=== PATIENT | male | born 1935 | race Caucasian/White ===

== ENCOUNTER → 2020-11-10 14:40 | Outpatient (BNVA) | payer MEDICARE, SELFPAY | PROVIDERS: PCP Nurse Practitioner Family; Visit Provider Nurse Practitioner Family | DX: I10 Essential (primary) hypertension (principal); M1A.00X0 Idiopathic chronic gout, unspecified site, without tophus (tophi); G56.03 Carpal tunnel syndrome, bilateral upper limbs; E55.9 Vitamin D deficiency, unspecified; Z79.899 Other long term (current) drug therapy; Z13.6 Encounter for screening for cardiovascular disorders; M19.90 Unspecified osteoarthritis, unspecified site | CPT/HCPCS: 80053; 80061; 81003; 82306; 83036; 84443; 84550; 85025; 87086 ==

== ENCOUNTER → 2020-11-23 14:24 | Outpatient (BNVA) | payer MEDICARE, SELFPAY | PROVIDERS: PCP Nurse Practitioner Family; Referring Provider Nurse Practitioner Family; Visit Provider Specialist | DX: G56.03 Carpal tunnel syndrome, bilateral upper limbs (principal); Z46.89 Encounter for fitting and adjustment of other specified devices | CPT/HCPCS: 73110; 97760; L3908 ==

== ENCOUNTER 2020-11-23 16:51 | Outpatient (CLI) | payer MEDICARE, SELFPAY | END 2020-11-23 16:52 | disposition home or self-care (01) | LOC: SPT 16:52 | PROVIDERS: PCP Nurse Practitioner Family; Visit Provider Specialist | DX: Z46.89 Encounter for fitting and adjustment of other specified devices (principal); G56.03 Carpal tunnel syndrome, bilateral upper limbs | CPT/HCPCS: 97760; L3908 ==

== ENCOUNTER → 2020-12-19 12:31 | Outpatient (BNVA) | payer MEDICARE, SELFPAY | PROVIDERS: PCP Nurse Practitioner Family; Visit Provider Specialist | DX: G56.02 Carpal tunnel syndrome, left upper limb (principal) | CPT/HCPCS: 87635 ==

== ENCOUNTER 2020-12-22 10:37 | Day surgery (SDC) | payer MEDICARE, SELFPAY ==
[2020-12-15 13:47] VITALS: BMI 27.2
[2020-12-21 15:03] VITALS: BMI 26.1
[2020-12-22] VITALS (7 sets, daily range): BP systolic 98–163; BP diastolic 62–84; PULSE 61–72; RESP 12–18; TEMP 36.2–36.5; O2SAT 96–99
[2020-12-22] MEDS: CELEcoxib 200 mg Capsule 400 MG PO (11:21)
[2020-12-22] MEDS: sodium chloride 0.9% 1,000 ML 30 ML IV (11:21)
--- NOTE | 2020-12-22 11:47 | P.ANESASSM_ITS ---
Pre-Anesthetic Assessment Pre-Anesthetic Assessment: Height/Weight: Height 1.78 m Weight 82.554 kg Temp Pulse Resp BP Pulse Ox 97.4 F L 61 18 163/84 96 12/22/20 10:49 12/22/20 10:49 12/22/20 10:49 12/22/20 10:49 12/22/20 10:49 Preop Diagnosis: Left carpal tunnel syndrome Proposed Procedure: Operation Date: 12/22/20 12:30 Proposed Procedures p Carpal Tunnel Release 33800 G56.00(Left) - Gardenia Gomez MD Familial anesthetic complications: None Was Beta Kirsty taken within 24 hours: Yes Last intake: Intake Last Liquid Date 12/21/20 Last Liquid Time 18:00 Last Solid Date 12/21/20 Last Solid Time 18:00 Social: Social History: No alcohol and No tobacco Exam: Pre-Anes Outpt Exam: alert, oriented x 3, clear to auscultation bilaterally and regular rate & rhythm Airway: Cervical ROM: WNL MP: 2 Dentition: Other (no teeth) CV/HEM: CV/HEM: HTN GI: GI: GERD Anesthetic Plan: ASA status: 2 Anesthesia: General Risk of > 500 ml blood loss (7ml/kg in children): No Meds/Allergies Current Medications: Current Medications Generic Name Dose Route Start Last Admin Trade Name Freq PRN Reason Stop Dose Admin Sodium Chloride 1,000 mls @ 30 ml s/hr 12/22/20 10:45 12/22/20 11:21 Sodium Chloride 0.9% IV 12/23/20 10:44 30 mls/hr .Q24H CHAIM Administration PFSH Anesthesia PFSH: Medical History Arthralgia Arthritis Carpal tunnel syndrome on both sides Patient has history of pain from carpal tunnel. He has work up and was scheduled for [place] [facility] [place] [facility], but cancelled due to concern of hospital stay. Hypertension Hypertension screen Idiopathic chronic gout Patient has long history of gout and family history of gout. He has taken Colchicine for many years and has continued to control symptoms. Renal insufficiency Vitamin D deficiency Vitamin D deficiency Surgical History Status post re-excision of malignant skin lesion Family History Mother Heart disease Social History Smoking and tobacco status: never smoked Alcohol intake: never Marital status: Data Anesthesia CBC & Chem 7: 12/22/20 11:16 12/22/20 11:16 Cardiac Studies: No Data to Display
[2020-12-22 11:50] LABS: Basophils # 0.1 10^3/uL (0.0-0.1); Basophils % 0.7 %; Eosinophils # 0.1 10^3/uL (0.0-0.8); Eosinophils % 1.8 %; Hematocrit 47.5 % (42.0-52.0); Lymphocytes # 2.2 10^3/uL (0.8-4.8); Lymphocytes % 29.6 %; Mean Corpuscular HGB Conc 33.7 g/dL (30.0-36.0); Mean Corpuscular Hemoglobin 33.8 pg (28.0-34.0); Mean Corpuscular Volume 100.4 fL (80-94); Mean Platelet Volume 9.4 fL (7.4-10.4); Monocytes # 0.6 10^3/uL (0.2-0.9); Neutrophils # 4.53 10^3/uL (1.8-7.7); Neutrophils % 59.8 %; Nucleated Red Blood Cells % 0 %; Platelet Count 328 10^3/cmm (130-400); Red Blood Count 4.73 10^6/uL (4.1-5.3); Red Cell Distribution Width 12.5 % (12.1-15.1); White Blood Count 7.6 10^3/uL (4.0-10.0)
[2020-12-22] MEDS: metoprolol succinate ER (24 HR) 50 mg Tablet PO (11:59)
[2020-12-22 12:16] LABS: Alanine Aminotransferase 7 U/L (0-41); Albumin Level 3.8 g/dL (3.5-5.2); Alkaline Phosphatase 89 IU/L (40-130); Aspartate Amino Transferase 17 U/L (0-40); Blood Urea Nitrogen 14 mg/dL (8-23); Calcium 8.6 mg/dL (8.5-10.5); Carbon Dioxide 25 mmol/L (22-29); Chloride 103 mmol/L (98-107); Globulin 3.5 g/dL (1.3-4.6); Glucose 80 mg/dL (65-115); Osmolality Calculated 287 mOsm/kg (285-295); Sodium 139 mmol/L (136-145); Total Bilirubin 0.8 mg/dL (0.15-1.2); Total Protein 7.3 g/dL (6.6-8.7)
[2020-12-22 12:24] LABS: Anion Gap 15.3 (5-19); Potassium 4.3 mmol/L (3.5-5.1)
--- NOTE | 2020-12-22 12:26 | W.PM.OPSUD ---
Surgery/Procedure H&P Update DATE OF PROCEDURE: December 22, 2020 DATE H&P PERFORMED: 11/23/20 H&P UPDATE INFORMATION: I have reviewed H&P completed within last 30 days, I have examined patient prior to procedure, No changes to prior documentation and H&P is in [facility] [place] on date indicated PREOP DIAGNOSIS: Left carpal tunnel syndrome PLANNED PROCEDURE: Operation Date: 12/22/20 12:30 Proposed Procedures p Carpal Tunnel Release 40610 G56.00(Left) - Gardenia Gomez MD Related Problem List Diagnoses (1) Carpal tunnel syndrome of left wrist:
[2020-12-22] MEDS: vancomycin 1,000 MG in sodium chloride 0.9% 250 ML 250 MG IV (12:35)
--- NOTE | 2020-12-22 13:44 | PM.OP ---
Operative Report Date of procedure: December 22, 2020 Pre-op Diagnosis: Left carpal tunnel syndrome Post-op diagnosis: same Post-op Findings: Severe compression across the median nerve Procedure Done: Left Carpal Tunnel Release Specimens removed/disposition: None Pathology: none sent Surgeon: Gardenia Gomez Archeology Professor: None Anesthesia: General (LMA) Estimated blood loss (mL): 2 Tourniquet time (min): 26 Tourniquet time: At 250 mmHg IV fluids (mL): 400 Urine output (mL): 0 Complications: None Findings: Severe compression with hourglass deformity median nerve Condition: stable Disposition: PACU (Then to same-day surgery for discharge home) Brief History: This 85-year-old gentleman presented with complaints of numbness in the left hand which was severe. Studies were consistent with carpal tunnel syndrome, and the patient wished to proceed with carpal tunnel release. Risks and complications were discussed with him. Consents were signed. Questions were answered. Procedure: The patient was brought to the operating theater, and general anesthesia was administered per LMA. The tourniquet was elevated to 250 mmHg for a total tourniquet time of 26 minutes. The patient was also given vancomycin 1 g preoperatively. The arm was then prepped and draped with DuraPrep in usual fashion with the arm draped free. A surgical pause was performed. At the time, the surgical pause, we confirmed the site and side of surgery. We also confirmed the patient's identity, appropriate and timely administration of preoperative antibiotics and preoperative surgical markings. An incision was then made along the thenar crease. The incision crossed the wrist joint in a curvilinear fashion. Dissection continued through skin and soft tissues using a scalpel. The palmaris longus was identified along with the transverse carpal ligament. Each of these was released carefully to avoid injury to the median nerve. We were able to dissect gently into the carpal canal which was noted to be quite tight with significant compression across the median nerve. The nerve was visualized and was an hourglass shape. The canal was subsequently palpated to assure there was no bony encroachment upon the canal. There was a quite thickened fibrous tissue within the canal, and this was opened longitudinally as well. The canal was then palpated distally and proximally to assure that my small finger was passed easily without impingement. Finding this to be so, attention was directed to closure. The wound was irrigated with ropivacaine plain. It was then closed with 3-0 nylon in an interrupted mattress fashion. Sterile dressing was then placed consisting of Xeroform gauze, fluffed fluffs, sterile soft roll, a volar splint, and an Rocky wrap. The tourniquet was released after 26 minutes. There were no complications. There were no specimens. The procedure was well tolerated. Plan is the patient will be discharged home. Associated Problem List Diagnoses (1) Carpal tunnel syndrome of right wrist:
--- NOTE | 2020-12-22 13:52 | SUR.PHASEI ---
pt awake alert on ra trial, pt taking occ ice chips vss pt denies pain and nausea
--- NOTE | 2020-12-22 14:50 | ANE.PACU2 ---
Inpatient post-anesthesia follow up: Airway intact: Yes Vital signs: Temperature 97.7 F Pulse Rate 69 Respiratory Rate 18 Blood Pressure 127/82 Pulse Oximetry 99 Oxygen Delivery Me thod Room Air Oxygen Flow Rate 6 Fraction of Inspir ed Oxygen Hydration adequate: Yes Nausea and vomiting: No Pain level: 2 Mental status: Baseline
== END 2020-12-22 14:47 | disposition home or self-care (01) ==
PROVIDERS: PCP Nurse Practitioner Family; Visit Provider Specialist
PROC: (CPT 64721; principal; 2020-12-22 12:30)
DX: G56.02 Carpal tunnel syndrome, left upper limb (principal); I10 Essential (primary) hypertension; K21.9 Gastro-esophageal reflux disease without esophagitis; M19.90 Unspecified osteoarthritis, unspecified site; Z79.82 Long term (current) use of aspirin
CPT/HCPCS: 64721; 36415; 80053; 85025; 96365; J0131; J1100; J2405; J2704; J3010; J3370; J3490; J7030; J7050

== ENCOUNTER → 2021-02-08 13:19 | Outpatient (BNVA) | payer MEDICARE, SELFPAY | PROVIDERS: PCP Nurse Practitioner Family; Visit Provider Specialist | DX: G56.02 Carpal tunnel syndrome, left upper limb (principal) | CPT/HCPCS: 73110 ==

== ENCOUNTER 2022-05-22 15:45 | Inpatient (IN) | payer MEDICARE, SELFPAY ==
[2022-05-22] VITALS (52 sets, daily range): BP systolic 104–148; BP diastolic 63–98; PULSE 54–82; RESP 11–26; TEMP 36.4–36.8; O2SAT 92–100; BMI 25.8
--- NOTE | 2022-05-22 15:48 | XRR_ITS ---
PROCEDURE INFORMATION: Exam: XR Chest Exam date and time: 05/22/2022 4:12 PM Age: 86 years old Clinical indication: Radiating; Patient HX: Sudden onset of acute upper abdominal and lower chest pain for about an hour. Patient tells me that he was at home after getting multiple procedures done at the dermatology clinic yesterday and today. Patient tells me that this pain is sudden onset and lasted for about an hour. He says this pain is the worst pain i have experienced. patient denies the pain is migratory but does report that it radiates towards the back. TECHNIQUE: Imaging protocol: Radiologic exam of the chest. Views: 1 view. COMPARISON: No relevant prior studies available. FINDINGS: Lungs: Unremarkable. No consolidation. Pleural spaces: Unremarkable. No pleural effusion. No pneumothorax. Heart/Mediastinum: Unremarkable. No cardiomegaly. Bones/joints: Unremarkable. XR/XR chest 1V portable [id number] IMPRESSION: No acute findings.
--- NOTE | 2022-05-22 15:48 | ECG_ITS ---
[facility] Test Date: 2022-05-22 Pat Name: Henrique Colon Department: Room: Gender: Male Cad Intern: : 1935 Requested By: Irma Meyer Order Number: [id number] Binu MD: Joi Moe M.D. Measurements Intervals [place] Rate: 61 P: 44 [place]: 191 QRS: -34 QRSD: 112 T: 75 QT: 407 QTc: 412 Interpretive Statements SINUS RHYTHM LEFT AXIS DEVIATION [QRS AXIS < -30] INCOMPLETE RIGHT BUNDLE BRANCH BLOCK [90+ ms QRS DURATION, TERMINAL R IN V1/V2, 40+ ms S IN I/aVL/V4/V5/V6] NONSPECIFIC T-WAVE ABNORMALITY No previous ECG available for comparison Electronically Signed On 05-22-2022 21:17:15 CDT by Joi Moe M.D. [id number]
--- NOTE | 2022-05-22 15:56 | W.ED.GENADLT ---
HPI - General Adult General: Chief complaint: Chest Pain Stated complaint: CHEST PAIN Time Seen by Provider: 05/22/22 15:47 History of Present Illness: Patient is an 86-year-old male with history of type blood pressure presenting to the emergency room with sudden onset of acute upper abdominal and lower chest pain for about an hour. Patient tells me that he was at home after getting multiple procedures done at the dermatology clinic yesterday and today. Patient tells me that this pain is sudden onset and lasted for about an hour. He says this pain is the worst pain I have experienced. Patient denies the pain is migratory but does report that it radiates towards the back. Patient denies any fever/chills, cough, runny nose sore throat, any active chest pain, exertional chest pain or pleuritic chest pain. Patient denies any Onset:2 hrs ago Duration:1 hr Location:home Severity:moderate Associated symptoms: Reports chest pain (+lower chest pain); Deny dyspnea, nausea, rash, palpitations or vomiting Review of Systems Const: Denies: fever(s) or chills Eyes: Denies: change in vision ENMT: Denies: mouth pain Card: Reports: chest pain (+lower chest pain); Denies: palpitations Resp: Denies: dyspnea or non-productive cough GI: Reports: abdominal pain (+upper abd pain); Denies: nausea, vomiting or diarrhea : Denies: dysuria Musc: Denies: extremity pain Skin/Breast: Denies: rash or new lesions Neuro: Denies: weakness in extremities Psych: Reports: other (Normal mood) [place]/Lymph: Denies: easy bruising PFSH ED PFSH: Medical History Arthralgia Arthritis Carpal tunnel syndrome on both sides Patient has history of pain from carpal tunnel. He has work up and was scheduled for surgery with [facility] [place] [facility], but cancelled due to concern of hospital stay. Hypertension Hypertension screen Idiopathic chronic gout Patient has long history of gout and family history of gout. He has taken Colchicine for many years and has continued to control symptoms. Renal insufficiency Vitamin D deficiency Vitamin D deficiency Surgical History Status post re-excision of malignant skin lesion Family History Mother Heart disease Social History Smoking and tobacco status: never smoked Alcohol intake: never Marital status: Physical Exam Const: COMMON NORMALS: alert HENMT: COMMON NORMALS: atraumatic HEAD & SCALP: atraumatic MOUTH: moist mucous membranes not abnormal Eye: COMMON NORMALS: EOMs intact bilaterally and conjunctivae normal CONJUNCTIVA: Yes conjunctivae normal Neck/C-Spine: COMMON NORMALS: full ROM and supple Resp: COMMON NORMALS: normal respiratory effort and clear to auscultation bilaterally AUSCULTATION: clear to auscultation bilaterally Cardio: COMMON NORMALS: regular rate RATE: regular rate GI: COMMON NORMALS: Soft to palpation and non-tender PALPATION: Yes Soft to palpation OTHER: + mild mid-epigastric focal TTP. NO guarding rebound, guarding, rigidity. No CVA tenderness to percussion. Neg Kohler/Neg McBurney's point tenderness, no suprabupic tenderness to palpation. Extremity: COMMON NORMALS: full ROM Neuro: SENSORIUM/ORIENTATION: Yes alert MOTOR EXAM: No Abnormal motor strength present and Other motor observations present (no focal motor deficits) Psych: COMMON NORMALS: speech normal SPEECH: Yes normal speech MOOD & AFFECT: Yes euthymic mood Course Vital Signs: Vital signs: Vital Signs Temperature 98.2 F 05/22/22 15:52 Pulse Rate 82 05/22/22 15:52 Respiratory Rate 16 05/22/22 15:52 Blood Pressure 145/98 05/22/22 15:52 Pulse Oximetry 99 05/22/22 15:52 Oxygen Delivery Me thod 05/22/22 15:52 [facility] - General Adult Medical Decision Making 86-year-old male with history hypertension presenting to emergency room with 1 episode of upper abdominal and lower chest pain lasting for an hour. On exam she only has mild tenderness palpation the mid epigastric area. No palpable pulsatile mass. Patient is hemodynamically stable. No active complaints of chest pain in the ER. EKG is nonischemic. First troponin noted to be at 157 with creatinine 1.5 which is similar to patient's baseline. Patient has not complained of active chest pain. Patient received aspirin by EMS. We will trend and admit patient for further elevation. Dr. Gomez would like to have a second troponin prior to starting patient on Lovenox. Lab Data : 05/22/22 16:03 05/22/22 16:03 Radiology Impressions Chest X-Ray 05/22/22 15:48 IMPRESSION: No acute findings. Laboratory Results WBC 10.8 10^3/uL (4.0-10.0) H 05/22/22 16:03 RBC 4.31 10^6/uL (4.1-5.3) 05/22/22 16:03 Hgb 13.8 g/dL (11.7-16.6) 05/22/22 16:03 Hct 42.8 % (42.0-52.0) 05/22/22 16:03 MCV 99.3 fl (80-94) H 05/22/22 16:03 MCH 32.0 pg (28.0-34.0) 05/22/22 16:03 MCHC 32.2 g/dL (30.0-36.0) 05/22/22 16:03 RDW 12.6 % (12.1-15.1) 05/22/22 16:03 Plt Count 248 10^3/cmm (130-400) 05/22/22 16:03 MPV 9.3 fL (7.4-10.4) 05/22/22 16:03 Neut % (Auto) 80.6 % 05/22/22 16:03 Lymph % (Auto) 12.1 % 05/22/22 16:03 Parke % (Auto) 5.9 % 05/22/22 16:03 Eos % (Auto) 0.6 % 05/22/22 16:03 Baso % (Auto) 0.4 % 05/22/22 16:03 Neut # (Auto) 8.69 10^3/uL (1.8-7.7) H 05/22/22 16:03 Lymph # (Auto) 1.3 10^3/uL (0.8-4.8) 05/22/22 16:03 Parke # (Auto) 0.6 10^3/uL (0.2-0.9) 05/22/22 16:03 Eos # (Auto) 0.1 10^3/uL (0.0-0.8) 05/22/22 16:03 Baso # (Auto) 0.0 10^3/uL (0.0-0.1) 05/22/22 16:03 Nucleated RBC % (auto) 0 % 05/22/22 16:03 Nucleated RBCs # 0.0 /100WBC 05/22/22 16:03 Sodium 140 mmol/L (136-145) 05/22/22 16:03 Potassium 3.8 mmol/L (3.5-5.1) 05/22/22 16:03 Chloride 103 mmol/L (98-107) 05/22/22 16:03 Carbon Dioxide 25 mmol/L (22-29) 05/22/22 16:03 Anion Gap 15.8 (5-19) 05/22/22 16:03 BUN 20 mg/dL (8-23) 05/22/22 16:03 Creatinine 1.5 mg/dL (0.7-1.2) H 05/22/22 16:03 GFR Calculation Not Reportable 05/22/22 16:03 Glucose 142 mg/dL (65-115) H 05/22/22 16:03 Calculated Osmolality 295 mOsm/kg (285-295) 05/22/22 16:03 Lactate 2.2 mmol/L (0.5-2.2) 05/22/22 16:03 Calcium 9.0 mg/dL (8.5-10.5) 05/22/22 16:03 Total Bilirubin 0.4 mg/dL (0.15-1.2) 05/22/22 16:03 AST 13 U/L (0-40) 05/22/22 16:03 ALT 9 U/L (0-41) 05/22/22 16:03 Alkaline Phosphatase 93 IU/L (40-130) 05/22/22 16:03 Troponin T Baseline 153 ng/L (0-15) H* 05/22/22 16:03 Total Protein 6.2 g/dL (6.6-8.7) L 05/22/22 16:03 Albumin 3.3 g/dL (3.5-5.2) L 05/22/22 16:03 Globulin 2.9 g/dL (1.3-4.6) 05/22/22 16:03 Lipase 36 U/L (13-60) 05/22/22 16:03 Urine Color Taylor (Yellow) 05/22/22 16:37 Urine Appearance Clear (CLEAR) 05/22/22 16:37 Urine pH 5 (5-7) 05/22/22 16:37 Ur Specific [place] 1.025 (1.005-1.030) 05/22/22 16:37 Urine Protein Neg (Negative) 05/22/22 16:37 Urine Glucose (UA) Norm (Normal) 05/22/22 16:37 Urine Ketones 1+ (Negative) H 05/22/22 16:37 Urine Blood Neg (Negative) 05/22/22 16:37 Urine Nitrate Negative (Negative) 05/22/22 16:37 Urine Bilirubin 1+ (Negative) H 05/22/22 16:37 Urine Urobilinogen 4 mg/dL (Negative) H 05/22/22 16:37 Ur Leukocyte Esterase Negative (Negative) 05/22/22 16:37 Imaging Data Other Imaging: Radiologist's impression: [place] [address] XRay Report Signed Patient: Henrique Colon Unit #: [id number] : 1935 Age/Sex: 86 / M ADM Date: 05/22/22 Loc: ER Room/Bed: Attending Dr: Ordering Provider/Ordering MD: Irma Meyer MD Date of Service: 05/22/22 Procedure(s): XR chest 1V portable [id number] Accession Number(s): [id number] Report Number: [id number] PROCEDURE INFORMATION: Exam: XR Chest Exam date and time: 05/22/2022 4:12 PM Age: 86 years old Clinical indication: Radiating; Patient HX: Sudden onset of acute upper abdominal and lower chest pain for about an hour. Patient tells me that he was at home after getting multiple procedures done at the dermatology clinic yesterday and today. Patient tells me that this pain is sudden onset and lasted for about an hour. He says this pain is the worst pain i have experienced. patient denies the pain is migratory but does report that it radiates towards the back. TECHNIQUE: Imaging protocol: Radiologic exam of the chest. Views: 1 view. COMPARISON: No relevant prior studies available. FINDINGS: Lungs: Unremarkable. No consolidation. Pleural spaces: Unremarkable. No pleural effusion. No pneumothorax. Heart/Mediastinum: Unremarkable. No cardiomegaly. Bones/joints: Unremarkable. XR/XR chest 1V portable [id number] IMPRESSION: No acute findings. ? Dictated By: Reyes Mosley DO Signed By: Reyes Mosley DO Signed Date/Time: 05/22/22 1650 DD/ 1612 Discharge Plan Discharge Patient Disposition: Admitted As Inpatient Clinical Impression: Abdominal pain, Chest pain, Non-ST elevation CO (NSTEMI), CKD (chronic kidney disease) Condition: Stable Coding Level of Care Code ED Trim Attacher for Chg Fwd Exam Comprehensive
[2022-05-22 16:13] LABS: Basophils % 0.4 %; Eosinophils # 0.1 10^3/uL (0.0-0.8); Eosinophils % 0.6 %; Hematocrit 42.8 % (42.0-52.0); Hemoglobin 13.8 g/dL (11.7-16.6); Lymphocytes # 1.3 10^3/uL (0.8-4.8); Lymphocytes % 12.1 %; Mean Corpuscular HGB Conc 32.2 g/dL (30.0-36.0); Mean Corpuscular Volume 99.3 fl (80-94); Mean Platelet Volume 9.3 fL (7.4-10.4); Monocytes # 0.6 10^3/uL (0.2-0.9); Monocytes % 5.9 %; Neutrophils # 8.69 10^3/uL (1.8-7.7); Neutrophils % 80.6 %; Nucleated Red Blood Cells % 0 %; Platelet Count 248 10^3/cmm (130-400); Red Blood Count 4.31 10^6/uL (4.1-5.3); Red Cell Distribution Width 12.6 % (12.1-15.1); White Blood Count 10.8 10^3/uL (4.0-10.0)
[2022-05-22 16:43] LABS: Troponin(5th) Baseline 153 ng/L (0-15)
[2022-05-22 16:45] LABS: Alanine Aminotransferase 9 U/L (0-41); Albumin Level 3.3 g/dL (3.5-5.2); Alkaline Phosphatase 93 IU/L (40-130); Anion Gap 15.8 (5-19); Aspartate Amino Transferase 13 U/L (0-40); Blood Urea Nitrogen 20 mg/dL (8-23); Carbon Dioxide 25 mmol/L (22-29); Chloride 103 mmol/L (98-107); Globulin 2.9 g/dL (1.3-4.6); Glucose 142 mg/dL (65-115); Lipase 36 U/L (13-60); Osmolality Calculated 295 mOsm/kg (285-295); Potassium 3.8 mmol/L (3.5-5.1); Sodium 140 mmol/L (136-145); Total Bilirubin 0.4 mg/dL (0.15-1.2); Total Protein 6.2 g/dL (6.6-8.7)
--- NOTE | 2022-05-22 16:50 | CTR_ITS ---
PROCEDURE INFORMATION: Exam: CTA Chest With Contrast CTA Abdomen and Pelvis With Contrast Exam date and time: 05/22/2022 6:07 PM Age: 86 years old Clinical indication: Abdominal pain; Acute; Additional info: Sudden onset of sharp chest pain, hypertension TECHNIQUE: Imaging protocol: Computed tomographic angiography of the chest with contrast. Computed tomographic angiography of the abdomen and pelvis with contrast. 3D rendering (Not supervised by radiologist): MIP and/or 3D reconstructed images were created by the technologist. Radiation optimization: All CT scans at this facility use at least one of these dose optimization techniques: automated exposure control; mA and/or kV adjustment per patient size (includes targeted exams where dose is matched to clinical indication); or iterative reconstruction. Contrast material: OMNIPAQUE 350; Contrast volume: 95 ml; Contrast route: INTRAVENOUS (IV); COMPARISON: CR XR chest 1V portable [id number] 05/22/2022 4:12 PM RADIATION DOSE METRICS: Total DLP (mGy-cm): 709.87 FINDINGS: VASCULATURE: Pulmonary arteries: Normal. No pulmonary emboli. Aorta: No aortic aneurysm. No aortic dissection. Celiac trunk and mesenteric arteries: No occlusion or significant stenosis. Renal arteries: No occlusion or significant stenosis. Right iliac arteries: No occlusion or significant stenosis. Left iliac arteries: No occlusion or significant stenosis. CHEST: Lungs: No consolidation. No masses. Pleural spaces: No pneumothorax. No pleural effusion. Heart: No cardiomegaly. No pericardial effusion. ABDOMEN AND PELVIS: Liver: 1.2 cm cyst noted in the posterior right hepatic lobe. Gallbladder and bile ducts: Unremarkable. No calcified stones. No ductal dilation. Pancreas: Unremarkable. No mass. No ductal dilation. Spleen: Unremarkable. No splenomegaly. Adrenal glands: Unremarkable. No mass. Kidneys and ureters: Scattered cysts noted within both kidneys the largest measuring 6.6 cm in the upper pole of the right kidney. 5 mm linear nonobstructing stone noted in the left kidney. No solid mass. No hydronephrosis. Stomach and bowel: Colonic diverticulosis without findings of acute diverticulitis. No obstruction. No mucosal thickening. Appendix: No evidence of appendicitis. Intraperitoneal space: No free air. No significant fluid collection. Urinary bladder: Unremarkable. No mass. Reproductive: Unremarkable as visualized. Lymph nodes: No enlarged lymph nodes. Bones/joints: No acute fracture. Soft tissues: Unremarkable. CT/CT angio chest abdomen pelvis IMPRESSION: Negative for aortic dissection. No acute findings. COMMENTS: Consistent with the [employer]'s Incidental Findings Committee white paper (J Am Kenna Radiol 2018): Any incidental renal lesion less than 1 cm or classified as too small to characterize, or any incidental cystic renal lesion characterized as simple-appearing, is likely benign. No follow-up imaging is recommended for these lesions per consensus recommendations based on imaging criteria.
[2022-05-22 16:57] LABS: Lactate (Lactic Acid level) 2.2 mmol/L (0.5-2.2)
[2022-05-22 17:42] LABS: Add Urine Microscopic? NO; Charge for UA Resulting for Rev
--- NOTE | 2022-05-22 17:48 | ECG_ITS ---
[facility] Test Date: 2022-05-22 Pat Name: Henrique Colon Department: Room: Gender: Male Rn Cardiology: : 1935 Requested By: Irma Meyer Order Number: [id number] Binu MD: Soledad Arita M.D. Measurements Intervals [place] Rate: 56 P: 48 [place]: 195 QRS: -41 QRSD: 108 T: 67 QT: 423 QTc: 409 Interpretive Statements SINUS BRADYCARDIA LEFT AXIS DEVIATION [QRS AXIS < -30] NONSPECIFIC T-WAVE ABNORMALITY Compared to ECG 05/22/2022 16:07:46 Sinus rhythm no longer present Incomplete right bundle-branch block no longer present T-wave abnormality still present Electronically Signed On 05-23-2022 19:52:13 CDT by Soledad Arita M.D. [id number]
[2022-05-22 17:56] LABS: Specific Gravity, Urine 1.025 (1.005-1.030); Urine Appearance Clear (CLEAR); Urine Color Amber (Yellow); pH Urine 5 (5-7)
[2022-05-22 17:57] LABS: Bilirubin Urine 1+ (Negative); Blood Urine Neg (Negative); Glucose Urine UA Norm (Normal); Ketones Urine 1+ (Negative); Leukocyte Esterase Urine Negative (Negative); Nitrate Urine Negative (Negative); Protein Urine Neg (Negative); Urobilinogen Urine 4 mg/dL (Negative)
--- NOTE | 2022-05-22 18:12 | P.HP_ITS ---
Providers/Chief Complaint Primary Care Provider: MYA Sierra Chief Complaint: CHEST PAIN History of Present Illness Henrique Colon is a 86 year old male with past medical history of hypertension came in with chief complaint of substernal chest pain started this morning 10 out of 10 in severity , sharp , radiating to both arms, accompanied with shortness of breath, lasted about 30 minutes and then spontaneously resolved,he had similar likely chest pain about a week back, which he attributes to upper belly pain, he denied any palpitation dizziness nausea vomiting, fever cough.Currently patient is chest pain free. Significant past medical history of tobacco chewing He started chewing tobacco use at age 6, it was provided to him by his grandfather. Pertinent imaging study done in the ER: X-ray chest: CTA chest abdomen and pelvis:NO P/E TO A.D EKG: Sinus rhythm, left axis deviation incomplete right bundle branch block, n onspecific T wave abnormalities Pertinent labs: WBC 10.8, H&H 13/ 42 , PLT : 248 , serum sodium 140 serum potassium 3.8, BUN and serum creatinine: 20/1.5 , AST ALT alk phos normal, Troponin: 153 --379 Review of Systems General: Reports: 10 or more systems reviewed and unremarkable except in HPI and below Const: Denies: fever(s), chills, body aches, change in appetite or diaphoresis Card: Denies: palpitations, edema, swelling of feet/ankles, dyspnea on e xertion, orthopnea or leg pain with exertion Resp: Denies: dyspnea, productive cough, wheezing or pain on inspiration GI: Denies: abdominal pain, nausea, vomiting, diarrhea or constipation : Denies: flank pain or difficulty urinating Musc: Denies: back pain, extremity pain or extremity swelling Neuro: Denies: headache(s), difficulty walking or confusion Medications/Allergies Home Medications Medication Instructions Recorded Confirmed Last Taken Type Prevagen 1 cap PO QAM 05/22/22 05/22/22 05/22/22 History amlodipine 10 mg tablet 10 mg PO QAM 05/22/22 05/22/22 05/22/22 History aspirin 81 mg tablet,delayed 81 mg PO QAM 05/22/22 05/22/22 05/22/22 History release colchicine 0.6 mg tablet (Colcrys) 0.6 mg PO DAILY PRN GOUT FLARE UPS 05/22/22 05/22/22 Unknown History imiquimod 5 % topical cream packet See Rx Instructions .Route .COMPLEX 05/22/22 05/22/22 Unknown History meloxicam 15 mg tablet 15 mg PO QAM 05/22/22 05/22/22 05/22/22 History metoprolol succinate 50 mg 50 mg PO QAM 05/22/22 05/22/22 05/22/22 History tablet,extended release 24 hr olmesartan 40 mg tablet 40 mg PO QAM 05/22/22 05/22/22 05/22/22 History Allergies Allergy/AdvReac Type Severity Reaction Status Date / Time Penicillins Allergy Unknown Verified 05/22/22 17:08 PFSH Acute PFSH: Medical History Arthralgia Arthritis Carpal tunnel syndrome on both sides Patient has history of pain from carpal tunnel. He has work up and was scheduled for surgery with [facility], but cancelled due to concern of hospital stay. Hypertension Hypertension screen Idiopathic chronic gout Patient has long history of gout and family history of gout. He has taken Colchicine for many years and has continued to control symptoms. Renal insufficiency Vitamin D deficiency Vitamin D deficiency Surgical History Status post re-excision of malignant skin lesion Family History Mother Heart disease Social History Smoking and tobacco status: never smoked Alcohol intake: never Marital status: Vitals/I&O/Wt Last Vital Signs Temp 98.2 F 05/22/22 15:52 Pulse 82 05/22/22 15:52 Resp 16 05/22/22 15:52 BP 145/98 05/22/22 15:52 Pulse Ox 99 05/22/22 15:52 O2 Del Method 05/22/22 15:52 Weight last 48 hrs Weight 81.647 kg Physical Exam Const: COMMON NORMALS: patient oriented x3 Resp: COMMON NORMALS: clear to auscultation bilaterally AUSCULTATION: clear to auscultation bilaterally Cardio: COMMON NORMALS: regular rate, regular rhythm, S1 normal heart sound present, S2 normal heart sound present, No gallops present (Cardio), No murmurs present (Cardio), No rub (Cardio) and Peripheral pulses 2+ throughout RATE: regular rate RHYTHM: regular rhythm HEART SOUNDS: S1 normal heart sound present and S2 normal heart sound present PERIPHERAL PULSES: Peripheral pulses 2+ throughout GI: COMMON NORMALS: Normal to inspection, nondistended, normoactive bowel sounds present, Soft to palpation, non-tender, No hepatosplenomegaly present and no masses AUSCULTATION: Yes normoactive bowel sounds PALPATION: Yes Soft to palpation and Yes No hepatosplenomegaly present RECTAL EXAM: Yes deferred Extremity: COMMON NORMALS: no clubbing, cyanosis or edema and no pedal edema Neuro: COMMON NORMALS: patient oriented x3 Data : 05/22/22 16:03 05/22/22 16:03 A&P Assessment and plan (1) Chest pain: Status: Acute (2) Non-ST elevation VT (NSTEMI): Status: Acute (3) CKD (chronic kidney disease): Status: Acute (4) Arthritis: Status: Acute (5) Hypertension: Status: Acute Plan 86 year old male with past medical history of hypertension came in with chief complaint of substernal chest pain started this morning 10 out of 10 in severity , sharp , radiating to both arms, accompanied with shortness of breath, lasted about 30 minutes and then spontaneously resolved,he had similar likely chest pain about a week back, which he attributes to upper belly pain, he denied any palpitation dizziness nausea vomiting, fever cough. Assessment: NSTEMI Hypertension Tobacco use Plan: CTA chest abdomen and pelvis: EKG: Sinus rhythm, left axis deviation incomplete right bundle branch block, nonspecific T wave 2D echo: Follow troponin trend Telemetry monitoring On ACS Protocol : Continue aspirin statin beta-nati, Nitropaste, sublingual nitro as needed, and therapeutic Ac with lovenox Hold olmesartan, continue amlodipine Protonix 40 p.o. daily Cardiac diet N.p.o. after midnight for Cardiac cath Cardiology on Board Gentle IV hydration with normal saline CODE STATUS: Full code DVT prophylaxis: On Lovenox Attestations Medical Necessity Statement*: Patient needs to be in hospital for management of NSTEMI.Anticipated length of stay greater than 2 midnight. Time Spent in Patient Care: Greater than 35 minutes (>than 50% of time spent in counselling and/or direct pt care on unit) . Coding Level of Care Code Acute Master Esthetician for Chg Fwd Exam Detailed Diagnoses Chest pain R07.9 Non-ST elevation VT (NSTEMI) I21.4 CKD (chronic kidney disease) N18.9 Arthritis M19.90 Hypertension I10
[2022-05-22 19:12] LABS: Troponin 5 2HR 379.3 ng/L (0-15)
[2022-05-22 19:13] LABS: Troponin 5 2HR Delta 226.3 ABS# (0-10)
[2022-05-22] MEDS: sodium chloride 0.9% 1,000 ML 50 ML IV (21:10)
[2022-05-22] MEDS: enoxaparin 80 mg/0.8 mL Syringe SUBCUT (21:10)
[2022-05-22] MEDS: nitroglycerin 1 gm/inch oint Pkt 1 INCH TOPICAL (21:10)
--- NOTE | 2022-05-22 21:48 | ECG_ITS ---
[facility] Test Date: 2022-05-22 Pat Name: Henrique Colon Department: Room: 250 Gender: Male Disease Case Manager Rn: : 1935 Requested By: Irma Meyer Order Number: [id number] Binu MD: Soledad Arita M.D. Measurements Intervals Hospers Rate: 54 P: 55 NV: 190 QRS: -27 QRSD: 118 T: -7 QT: 491 QTc: 468 Interpretive Statements SINUS BRADYCARDIA POSSIBLE LATERAL MYOCARDIAL INFARCTION , OF INDETERMINATE AGE [30 ms Q WAVE IN I/aVL/V5/V6] MODERATE T-WAVE ABNORMALITY, CONSIDER ANTERIOR ISCHEMIA [-0.1+ mV T-WAVE IN V3/V4] Compared to ECG 05/22/2022 17:55:10 Myocardial infarct finding now present Possible ischemia now present Left-axis deviation no longer present T-wave abnormality still present Electronically Signed On 05-23-2022 19:51:25 CDT by Soeldad Arita M.D. [id number]
--- NOTE | 2022-05-22 21:55 | USCV_ITS ---
Henrique Colon Age: 86 Gender: M : 1935 Exam Date: 05/22/2022 23:04 Ordering Phys: Dionicio Gomez MD Technologist: ROCIO Exam Location: [facility] [place] Indication: CHEST PAIN BP: 142 / 76 HR: 57 Rhythm: Sinus Technical Quality: Adequate MEASUREMENTS (Male / Female) Normal Values 2D ECHO LV Diastolic Diameter PLAX 4.0 cm 4.2 - 5.9 / 3.9 - 5.3 cm LV Systolic Diameter PLAX 2.8 cm IVS Diastolic Thickness 1.4 cm 0.6 - 1.0 / 0.6 - 0.9 cm IVS Systolic Thickness 1.2 cm LVPW Diastolic Thickness 1.3 cm 0.6 - 1.0 / 0.6 - 0.9 cm LVPW Systolic Thickness 1.3 cm LVOT Diameter 2.0 cm LV Ejection Fraction 2D Teich 56.3 % LV Ejection Fraction MOD 2C 51.9 % LV Ejection Fraction 2C AL 50.6 % LA Diameter 3.3 cm LA Width 3.9 cm LA Height 5.9 cm RA Width 2.8 cm RA Height 4.1 cm Aorta at Sinotubular Diameter 3.4 cm IVC Diameter 1.7 cm M-MODE Aortic Annulus Diameter 3.5 cm LA Ao Ratio MM 1.0 MV E Point Septal Separation 0.3 cm DOPPLER AV Peak Velocity 118.0 cm/s LVOT Peak Velocity 93.0 cm/s AV Area Cont Eq vti 2.3 cm squared AV Area Cont Eq pk 2.5 cm squared MV Peak Velocity 101.0 cm/s MV Area PHT 3.0 cm squared Mitral E to A Ratio 0.9 MV E' Velocity 42.5 cm/s Mitral E to MV E' Ratio 11.1 Mitral E to LV E' Lateral Ratio 9.6 Mitral E to LV E' Septal Ratio 13.5 TR Peak Velocity 222.8 cm/s TR Peak Gradient 19.8 mmHg TV Peak E Velocity 57.0 cm/s Right Atrial Pressure 5.0 mmHg Pulmonary Artery Systolic Pressu 24.8 mmHg PV Peak Velocity 82.0 cm/s RV Acceleration Time 0.1 s RV Ejection Time 0.4 s RV AcT/ET 0.3 FINDINGS Left Ventricle Normal left ventricular size and wall thickness. Mildly decreased left ventricular systolic function. Left ventricular ejection fraction is estimated at 50-55 %. Mild hypokinesis of apical anterior, apical lateral and apical septal olea. Normal diastolic function. Abnormal septal motion consistent with conduction abnormality. Right Ventricle Normal right ventricular size and systolic function. Right ventricular systolic pressure 23 mmHg. Right Atrium Normal right atrial size. Left Atrium Normal left atrial size. Mitral Valve Mildly thickened mitral valve. No mitral valve stenosis. Mild mitral valve regurgitation. Aortic Valve Structurally normal trileaflet aortic valve. No aortic valve stenosis. No aortic valve regurgitation. Tricuspid Valve Structurally normal tricuspid valve. Trace tricuspid valve regurgitation. Pulmonic Valve Pulmonic valve not well visualized. No pulmonary valve stenosis. No significant pulmonary valve regurgitation. Pericardium No pericardial effusion. Aorta Normal size aortic root and proximal ascending aorta. IVC Normal IVC dimension. CONCLUSIONS 1. Normal left ventricular size. Mildly decreased left ventricular systolic function. Left ventricular ejection fraction is estimated at 50-55 %. Mild hypokinesis of apical anterior, apical lateral and apical septal olea. Normal diastolic function. 2. Normal right ventricular size and systolic function. 3. Pulmonary pressure estimated at 23 mmHg. 4. Mild mitral valve regurgitation. 5. No prior similar studies to compare. Soledad Arita MD (Electronically Signed) Final Date: 23 May 2022 17:28 S
[2022-05-22 23:58] LABS: Troponin 5 6HR 493.4 ng/L (0-15); Troponin 5 6HR Delta 340.4 ng/L (0-12)
[2022-05-23] VITALS (26 sets, daily range): BP systolic 113–147; BP diastolic 61–91; PULSE 54–68; RESP 12–25; TEMP 36.4–36.8; O2SAT 93–100
[2022-05-23] MEDS: nitroglycerin 1 gm/inch oint Pkt 1 INCH TOPICAL ×2 (00:07→05:58)
[2022-05-23 02:04] LABS: Basophils # 0.1 10^3/uL (0.0-0.1); Basophils % 0.5 %; Eosinophils # 0.1 10^3/uL (0.0-0.8); Hemoglobin 13.5 g/dL (11.7-16.6); Lymphocytes # 2.3 10^3/uL (0.8-4.8); Lymphocytes % 24.2 %; Mean Corpuscular HGB Conc 32.9 g/dL (30.0-36.0); Mean Corpuscular Hemoglobin 32.2 pg (28.0-34.0); Mean Corpuscular Volume 97.9 fl (80-94); Mean Platelet Volume 9.7 fL (7.4-10.4); Monocytes # 0.8 10^3/uL (0.2-0.9); Neutrophils # 6.31 10^3/uL (1.8-7.7); Neutrophils % 66.1 %; Nucleated Red Blood Cells % 0 %; Platelet Count 255 10^3/cmm (130-400); Red Blood Count 4.19 10^6/uL (4.1-5.3); Red Cell Distribution Width 12.7 % (12.1-15.1); White Blood Count 9.6 10^3/uL (4.0-10.0)
[2022-05-23 02:15] LABS: Estmated Average Glucose 105; Hemoglobin A1C 5.3 % (4.0-6.0)
[2022-05-23 02:40] LABS: Alanine Aminotransferase < 5 U/L (0-41); Albumin Level 3.2 g/dL (3.5-5.2); Alkaline Phosphatase 86 IU/L (40-130); Anion Gap 15.3 (5-19); Aspartate Amino Transferase 25 U/L (0-40); Blood Urea Nitrogen 16 mg/dL (8-23); Calcium 8.6 mg/dL (8.5-10.5); Carbon Dioxide 25 mmol/L (22-29); Chloride 103 mmol/L (98-107); Cholesterol 145 mg/dL (0-200); Globulin 2.9 g/dL (1.3-4.6); Glucose 96 mg/dL (65-115); HDL Cholesterol 44 mg/dL (60-100); LDL Cholesterol Calculated 89 mg/dL (50-129); LDL HDL Ratio 2.02 RATIO (0.00-3.22); Magnesium 2.1 mg/dL (1.7-2.3); Osmolality Calculated 289 mOsm/kg (285-295); Potassium 4.3 mmol/L (3.5-5.1); Sodium 139 mmol/L (136-145); Thyroid Stimulating Hormone 2.32 uIU/mL (0.27-4.20); Total Bilirubin 0.7 mg/dL (0.15-1.2); Total Protein 6.1 g/dL (6.6-8.7); Triglycerides 60 mg/dL (0-150)
[2022-05-23 02:54] LABS: INR 1.01 (0.8-1.2)
[2022-05-23] MEDS: aspirin 81 mg EC Tablet PO (05:58)
[2022-05-23] MEDS: amlodipine 10 mg Tablet PO (05:58)
--- NOTE | 2022-05-23 07:59 | PC.NURSE ---
spoke with provider about lovenox injection scheduled for this am instructions to hold due to possible procedure
--- NOTE | 2022-05-23 08:24 | PC.NURSE ---
call received from provider to go ahead with Lovenox administration
[2022-05-23] MEDS: atorvastatin 40 mg Tablet PO (08:31)
[2022-05-23] MEDS: pantoprazole DR 40 mg Tablet PO (08:31)
[2022-05-23] MEDS: enoxaparin 80 mg/0.8 mL Syringe SUBCUT (08:31)
--- NOTE | 2022-05-23 09:27 | P.CONIM_ITS ---
Providers/Reason For Consult Consulting Physician/Specialty*: Cardiovascular medicine Reason for Consult*: Non-ST segment elevation PA Requesting Physician: Hospitalist Attending Physician: Dionicio Gomez MD Primary Care Provider: MYA Sierra History of Present Illness History of Present Illness Henrique Colon is a 86 year old male with with no prior history of heart disease. He was sitting watching TV yesterday relaxing and had sudden onset of 10 out of 10 chest pain which was preceded by some abdominal discomfort. This r adiated to both arms down to the shoulders and caused shortness of breath. No diaphoresis. No nausea or vomiting. This lasted for 15 minutes and went away. He came into the emergency room. His first troponin was 153, the second 379 and the third 493. His creatinine is 1.3. CBC and electrolytes are normal. His first EKG showed sinus rhythm with a left axis deviation and nonspecific T wave changes especially in leads V3 through V6 and lead I and L. Subsequent two EKGs showed worsening of the T wave changes and now his T waves are completely inverted in those leads. He has been admitted and placed on amlodipine, aspirin, Lipitor, Lovenox and Nitropaste. He received a dose of Lovenox about an hour ago. He has no history of heart disease but does have a history of hypertension. He used smokeless tobacco his entire life. He has chronic kidney disease, arthritis, gout, vitamin D deficiency, GERD and carpal tunnel syndrome. Review of Systems Narrative: Review of systems is negative. Medications/Allergies Home Medications Medication Instructions Recorded Confirmed Last Taken Type Prevagen 1 cap PO QAM 05/22/22 05/22/22 05/22/22 History amlodipine 10 mg tablet 10 mg PO QAM 05/22/22 05/22/22 05/22/22 History aspirin 81 mg tablet,delayed 81 mg PO QAM 05/22/22 05/22/22 05/22/22 History release colchicine 0.6 mg tablet (Colcrys) 0.6 mg PO DAILY PRN GOUT FLARE UPS 05/22/22 05/22/22 Unknown History imiquimod 5 % topical cream packet See Rx Instructions .Route .COMPLEX 05/22/22 05/22/22 Unknown History meloxicam 15 mg tablet 15 mg PO QAM 05/22/22 05/22/22 05/22/22 History metoprolol succinate 50 mg 50 mg PO QAM 05/22/22 05/22/22 05/22/22 History tablet,extended release 24 hr olmesartan 40 mg tablet 40 mg PO QAM 05/22/22 05/22/22 05/22/22 History Allergies Allergy/AdvReac Type Severity Reaction Status Date / Time Penicillins Allergy Unknown Verified 05/22/22 17:08 Current Medications Generic Name Dose Route Start Last Admin Trade Name Drake PRN Reason Stop Dose Admin Amlodipine Besylate 10 mg 05/23/22 06:00 05/23/22 05:58 Amlodipine 10 Mg Tablet PO 10 mg QAM CHAIM Administration Aspirin 81 mg 05/23/22 06:00 05/23/22 05:58 Aspirin 81 Mg Ec Tablet PO 81 mg QAM CHAIM Administration Atorvastatin Calcium 40 mg 05/23/22 09:00 05/23/22 08:31 Atorvastatin 40 Mg Tablet PO 40 mg DAILY CHAIM Administration Enoxaparin Sodium 80 mg 05/22/22 19:30 05/23/22 08:31 Enoxaparin 80 Mg/0.8 Ml Syringe SUBCUT 80 mg Q12H CHAIM Administration Sodium Chloride 1,000 mls @ 50 mls/hr 05/22/22 18:15 05/22/22 21:10 Sodium Chloride 0.9% IV 50 mls/hr .Q20H CHAIM Administration Nitroglycerin 1 inch 05/22/22 18:15 05/23/22 05:58 Nitroglycerin 1 Gm/Inch Oint Pkt TOPICAL 1 inch Q6H CHAIM Administration Pantoprazole Sodium 40 mg 05/23/22 09:00 05/23/22 08:[address] 40 Mg Tablet PO 40 mg DAILY CHAIM Administration PFSH Acute PFSH: Medical History Arthralgia Arthritis Carpal tunnel syndrome on both sides Patient has history of pain from carpal tunnel. He has work up and was scheduled for surgery with [facility], but cancelled due to concern of hospital stay. Hypertension Hypertension screen Idiopathic chronic gout Patient has long history of gout and family history of gout. He has taken Colchicine for many years and has continued to control symptoms. Renal insufficiency Vitamin D deficiency Vitamin D deficiency Surgical History Status post re-excision of malignant skin lesion Family History Mother Heart disease Social History Smoking and tobacco status: never smoked Alcohol intake: never Marital status: Vitals/I&O/Wt Last Vital Signs Temp 98.3 F 05/23/22 07:43 Pulse 56 L 05/23/22 07:43 Resp 15 05/23/22 07:43 BP 133/65 05/23/22 07:43 Pulse Ox 95 05/23/22 07:43 O2 Del Method 05/23/22 07:43 Weight last 48 hrs Weight 180 lb Physical Exam Narrative: GENERAL: In general he looks comfortable now. HEENT: Exam within normal limits. NECK: Supple without jugular vein distention. The carotid upstroke is normal without bruits. BACK: Exam normal. LUNGS: Clear. HEART: Regular rate and rhythm. ABDOMEN: Benign without organomegaly or tenderness. EXTREMITIES: No edema. NEUROLOGIC: Exam normal. SKIN: Unremarkable. Data : 05/23/22 01:45 05/23/22 01:45 A&P Assessment and plan (1) Non-ST elevation PA (NSTEMI): Status: Acute (2) CKD (chronic kidney disease): Status: Acute (3) Hypertension screen: Status: Acute (4) Hypertension: Status: Acute Plan Classic pain with EKG changes and troponin elevation. We will proceed with coronary angiography today. I have spoken to him about it. Currently he is dung e of any discomfort. Consult Attestations Medical Necessity Statement: Management of non-ST segment elevation PA Coding Level of Care Code New Pt Acute Antique Clock Repairer for Chg Fwd Patient Type New History Detailed Exam Detailed Medical Decision Making Moderate Complexity Diagnoses Non-ST elevation PA (NSTEMI) I21.4 CKD (chronic kidney disease) N18.9 Hypertension screen Z13.6 Hypertension I10
--- NOTE | 2022-05-23 09:46 | XACV_ITS ---
Exam Room: [facility] Ht: 178 cm Wt: 82 kg BSA: 2.02 m2 Gender: Male : 1935 Exam Priority: Routine Procedure(s): Procedure Description: Diagnostic procedure Procedure Description: PCI procedure Procedure Description: Left Heart Catheterization Procedure Description: Left ventriculography Procedure Description: Drug Eluting Coronary Stent Procedure Description: PTCA Procedure Description: Coronary Angiography Diagnostic Cath Status: Urgent Diagnostic Findings * Patient is 86 years old with no prior known history of coronary artery disease. Admitted yesterday with typical angina and elevation in the troponin. The EKG involved to T wave inversion in the lateral leads. * Angiography proved to be very difficult. Initially we attempted the radial approach. We were able to get the sheath in the radial artery however the more proximal artery, the innominate and the axillary artery were so tortuous that the catheters could not be placed in the ostia of the vessels. We therefore switched to the right femoral artery. After this the patient began to get combative. He would simply not hold his legs still. He consistently bent his knees upward making it nearly impossible to perform the procedure. We were able to get the diagnostic evaluation completed with a great deal of difficulty. Sedation made his agitation and combativeness worsen so we let all of the sedation wear off. This still did not keep him still however.. 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 I ended up using a left 5 Sarah for the left main and a modified right Amplatz for the right coronary artery. The left main coronary artery is normal. There is a moderate size left anterior descending which is calcified. There is a 60% proximal stenosis and a 95% mid stenosis. * There is a small to medium size ramus intermedius artery which contains mild diffuse luminal irregularities. The circumflex comes off at a right ankle and there is a small first obtuse marginal branch which splits the difference between the AV groove branch and the ramus intermedius. It contains mild to moderate luminal irregularities. The AV groove branch has 2 or 3 , 95% stenoses in the midportion. These are on either side of a very tiny AV groove branch. The main circumflex ends as the second obtuse marginal. * The right coronary artery was difficult to locate. 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 It is an unusual artery with mild luminal irregularities and no significant stenoses. PCI Status: Urgent PCI LVEF Assessed: Yes PCI Indication: NSTE - ACS Interventional Findings * By the time the intervention was attempted the patient was extremely combative. I had to use a 4.0 EBU guide to access the left main with some difficulty. I was able to place a wire down the LAD and primarily stent the mid LAD. I did not intervene on the proximal LAD lesion. I then placed a wire down the AV groove circumflex branch. The patient was so combative it was difficult to complete the procedure. I did perform a balloon angioplasty attempt but was never able to get the balloon across the lesion because of the patient's combativeness and because the severity of the stenosis of the lesion. I used a 2.25 mm balloon. Decision for PCI with Surgical Consult: No PCI for Multi-vessel Disease: Yes Multi-vessel Procedure Type: Initial PCI Conclusions 1. Two-vessel coronary artery disease with stenting of the mid circumflex. Failed attempt at balloon angioplasty of the second obtuse marginal branch. Mildly abnormal left ventricular function with minimal apical dyskinesis. Recommendations * Medical therapy. Interventional RX Recommendation: PCI w/o planned CABG Diagnostic RX Recommendation: PCI w/o planned CABG Anticoagulation: Heparin Ventriculography Ejection Fraction: 50.0 % Pressures Phase:Rest AO : 93 / 59 ( 76 ) @ 2:46:00 PM 135 / 62 ( 91 ) @ 3:16:00 PM 134 / 52 ( 91 ) @ 3:16:00 PM 133 / 66 ( 93 ) @ 3:34:00 PM 139 / 69 ( 101 ) @ 3:44:00 PM LV : 117 / -2 / 12 @ 3:15:00 PM 124 / 0 / 13 @ 3:16:00 PM 125 / 0 / 12 @ 3:16:00 PM Valves Phase:DefaultPhase AV : 0.0 @ 2:53:45 PM 0.0 @ 2:53:45 PM AV Mean Gradient: 0.0 @ 2:53:45 PM 0.0 @ 2:53:45 PM Clinical Evaluation EBL: 5mL-10mL Procedural Details Procedure Consent Obtained. Admit Source: In Patient. Pre-Procedure Time Out. Identified patient by full name and date of as verbalized by the patient/guarantor. Does the consent match the physician's order: Yes. Accurate & Complete Informed Consent: Yes. Inpatient/Outpatient History & Physical on Chart: Yes. If H&P is completed, is and addenduem needed: N/A; If yes, is the addendum complete: N/A. Visualize and Verify Site with Patient/Guarantor: N/A. Relevant Radiology Images available: N/A. Pre-op teaching completed and patient verbalized understanding. The risks, benefits, and alternatives of sedation and/or procedure were discussed by physician. The patient agrees to continue. Procedure started. [facility] Clinical Fraility Score: 3: Managing Well. Seat Coverer Indications: New Onset Angina. Chest Pain Symptom Assessment: Typical Angina Symptoms. Correct patient, site and procedure confirmed by cath team. Current diagnosis: NSTEMI. PERRLA. Strong, equal hand digital production operator bilaterally. Lungs clear x 5 lobes. IV Site on Arrival: 20 gauge in the right forearm. IV Fluids: 0.9% NaCl at KVO. 0 mL infused prior to pharmacy laboratory technician. Pre Procedural Pulses: right radial was 2+. Pre Procedural Pulses: bilateral dorsalis pedis was 2+. Oxygen started at 2liters/min via nasal canula. right groin was prepped with chloroprep then draped in the usual sterile fashion. right radial was prepped with chloroprep then draped in the usual sterile fashion. Baseline sample Acquired. HR: 62 BPM. Physician arrived. Physician scrubbed in. Lidocaine 1% infiltrated to the right radial. Arterial access obtained. A 6 irish TIG catheter in over wire. Radial access aborted d/t torturosity. Femoral access attempted at this time. Lidocaine 1% infiltrated to the right groin. Arterial access obtained with micropuncture set. Catheter out. A 6 irish JL4 catheter in over wire. Catheter out. A 6 irish JR4 catheter in over wire. Catheter out. A 6 irish JL5 catheter in over wire. Multiple views taken of left coronary artery. Catheter out. A 6 irish AL1 catheter in over wire. Catheter out. A 6 irish AR2 catheter in over wire. Multiple views taken of right coronary artery. Catheter out. A 6 irish Angled Pig catheter in over wire. EDP Sample taken: LV 117/-3,12; HR: 61 BPM; SpO2: 97%. LV gram performed in WESLEY @ 10 mL/second for a total of 30 mL. EDP Sample taken: LV 124/-1,13; HR: 65 BPM; SpO2: 97%. Pullback taken: LV 125/-1,12; AO 135/62(91); Mean: 0mmHg, Peak to Peak: 0mmHg, SEP: 15sec/min; HR: 68 BPM; SpO2: 97%. Catheter out. 6 irish XB 3.5 guide catheter was inserted over the wire. [place] wire inserted into the guide. Unable to engage left. Guide catheter out. 6 irish XB 4 guide catheter was inserted over the wire. [place] guidewire was advanced through the guide catheter to lesion in the mid LAD. Stent inserted to lesion in the mid LAD. Inflation Number : 1 A SHAHRAM Grady JOSR 2.75X18 MILTON -Lot Number#[id number] Exp 11/27/2024 was prepped and advanced across the Mid LAD. The stent was deployed at 12 CB for 0:20 seconds. Stent balloon out over wire. Results checked. Wire out. [place] guidewire was advanced through the guide catheter to lesion in the 2nd OM. Inflation number : 1 A AB TREK 2.25X20 RX BALLOON was prepped and advanced across the Lat 2nd Ob Linda , then inflated to 8 CB for 0:14 seconds. Balloon inserted to lesion in the OM. Inflation number: 2 The AB TREK 2.25X20 RX BALLOON was reinflated across the Lat 2nd Ob Linda, to 8 CB for 0:14 seconds. Balloon and wire out. Results checked. Guide catheter out. A TR Band was successful obtaining hemostatsis at the Right Radial artery insertion site. A Suture was successful obtaining hemostatsis at the Right Femoral artery insertion site. PERRLA. Strong, equal hand digital production operator bilaterally. No VTE prophylaxis required. Medication's Wasted: Heparin = 3000 u. Total IV fluids: 118 mL. PCI Indication: NSTE. Post-op diagnosis: Obstructive CAD. Complications: none. Estimated blood loss: 5mL-10mL. Responsiveness - Normal response to verbal stimuli; alert and oriented, PERRLA. Airway - Unaffected, no intervention required; spontaneous ventilation. Circulation: W/N/L, pulses unchanged. Nausea/Vomiting: No. Procedure completed. Patient transferred by bed to [facility]. Vital chart was stopped. Access Site Site: Right Radial artery Sheath Size: 6 Fr Hemostasis Method: TR Band Hemostasis Success: Successful Site: Right Femoral artery Sheath Size: 6 Fr Hemostasis Method: Suture Hemostasis Success: Successful Procedure Medications Start: 1:38 PM Stop: 1:38 PM Medication: Benadryl Amount: 25 mg Route: I.V. Start: 1:39 PM Stop: 1:39 PM Medication: Versed Amount: 1 mg Route: I.V. Start: 1:39 PM Stop: 1:39 PM Medication: Fentanyl Amount: 25 mcg Route: I.V. Start: 1:39 PM Stop: 1:39 PM Medication: 0.9% Saline Amount: 75 ml/hr Route: I.V. drip Start: 1:45 PM Stop: 1:45 PM Medication: Versed Amount: 1 mg Route: I.V. Start: 1:46 PM Stop: 1:46 PM Medication: Fentanyl Amount: 25 mcg Route: I.V. Start: 2:00 PM Stop: 2:00 PM Medication: Versed Amount: 1 mg Route: I.V. Start: 2:23 PM Stop: 2:23 PM Medication: Benadryl Amount: 50 mg Route: I.V. Start: 2:40 PM Stop: 2:40 PM Medication: Heparin Amount: 5000 units Route: I.V. Start: 2:48 PM Stop: 2:48 PM Medication: Plavix Amount: 600 mg Route: P.O. I, the attending physician, have reviewed and verified all procedure medications. Yes, all medications given per verbal order History/Risk Factors Hypertension: Yes Dyslipidemia: No Peripheral Arterial Disease (PAD): No Myocardial Infarction (MT): No Obesity: No Renal Disease: No Tobacco Use: Never Prior Interventions PCI: No CABG: No Valve Surgery: No Report Signatures Finalized by Dr. Raleigh Smith MD on 05/23/2022 03:15 PM
--- NOTE | 2022-05-23 10:20 | PC.CHAP ---
Pastoral Care Encounter/Spiritual Assessment Type of Contact [] Declined corporate accounting manager visit [] Patient/Family/Request visit [] Outpatient visit [] Follow-up visit [] Physician referral [] Code/Alert [x] Routine visit [] Staff referral [] Actively dying [] Patient sleeping [] Family support [] [] Out of room [] Palliative care [] [] Receiving care in room [] Pre-surgical visit [] Trauma [] Long length of stay [] ICU visit [] Other: Relational/Emotional Strength x [] Patient feels connected with others/family/visitors/staff [] Distress [] Loneliness/isolation [] Abandonment Spirituality of Patient [x] Person of Cris [] Attends Yazidism of their Cris []x Believes in Prayer [] Reads Bible or Hinduism materials [] There are Spiritual issues to be addressed Personal Injury Law Specialist Interventions [x] Prayer [x] Active listening [] Non-anxious presence [] Spiritual/emotional support [] Crisis/trauma care [] Spiritual counseling [] Bereavement support [] Provided bereavement packet [] Provided Bible/devotional materials [] Provided toy/stuffed animal, coloring book to patient or family member [] Provided Communion [] Anointing/Sayre [] Salvation [x] Completed spiritual assessment [] Other: Impact on Illness or Injury [] Angry [] Fearful [] Anxious [] Often cries [] Exhaustion [] Unable to work [] Unable to attend church [] Unable to walk/stand [] Unable to read [] Unable to drive [] Unable to eat/drink [] Unable to sleep [] Unable to be with family [] Patient intubated [] Other: Summary Time spent with patient 10 min
[2022-05-23] MEDS: sodium chloride 0.9% 1,000 ML 100 ML IV (15:15)
[2022-05-23 17:46] LABS: Partial Thromboplastin Time 189.6 SECONDS (23.9-36.7)
--- NOTE | 2022-05-23 18:06 | PM.PN ---
Subjective Subjective: Patient was seen and examined this morning, underwent cardiac cath, denies any chest pain currently. Medications: Medication Review Details: Generic Name Dose Route Start Last Admin Trade Name Drake PRN Reason Stop Dose Admin Amlodipine Besylat e 10 mg 05/23/22 06:00 05/23/22 05:58 Amlodipine 10 Mg Tablet PO 10 mg QAM CHAIM Administration Aspirin 81 mg 05/23/22 06:00 05/23/22 05:58 Aspirin 81 Mg Ec Tablet PO 81 mg QAM CHAIM Administration Atorvastatin Calci um 40 mg 05/23/22 09:00 05/23/22 08:31 Atorvastatin 40 Mg Tablet PO 40 mg DAILY CHAIM Administration Sodium Chloride 1,000 mls @ 50 ml s/hr 05/23/22 13:00 05/23/22 14:27 Sodium Chloride 0.9% IV 05/24/22 08:59 Not Given .Q20H ONE Pantoprazole Sodiu m 40 mg 05/23/22 09:00 05/23/22 08:[address] 40 Mg Tablet PO 40 mg DAILY CHAIM Administration Vitals/I&O/Wt Last Vital Signs Temp 97.5 F L 05/23/22 11:37 Pulse 61 05/23/22 16:30 Resp 25 H 05/23/22 16:30 BP 141/85 05/23/22 16:30 Pulse Ox 97 05/23/22 16:15 O2 Del Method 05/23/22 11:37 05/23/22 05/23/22 05/23/22 06:59 14:59 22:59 Intake Total 945 / 945 Balance 945 / 945 Weight last 48 hrs Weight 81.647 kg Physical Exam Const: COMMON NORMALS: patient oriented x3 Resp: COMMON NORMALS: clear to auscultation bilaterally AUSCULTATION: clear to auscultation bilaterally Cardio: COMMON NORMALS: regular rate, regular rhythm, S1 normal heart sound present, S2 normal heart sound present, No gallops present (Cardio), No murmurs present (Cardio), No rub (Cardio) and Peripheral pulses 2+ throughout RATE: regular rate RHYTHM: regular rhythm HEART SOUNDS: S1 normal heart sound present and S2 normal heart sound present PERIPHERAL PULSES: Peripheral pulses 2+ throughout GI: COMMON NORMALS: Normal to inspection, nondistended, normoactive bowel sounds present, Soft to palpation, non-tender, No hepatosplenomegaly present and no masses AUSCULTATION: Yes normoactive bowel sounds PALPATION: Yes Soft to palpation and Yes No hepatosplenomegaly present RECTAL EXAM: Yes deferred Extremity: COMMON NORMALS: no clubbing, cyanosis or edema and no pedal edema Neuro: COMMON NORMALS: patient oriented x3 Data : 05/23/22 01:45 05/23/22 01:45 A&P Assessment and plan (1) Chest pain: Status: Acute (2) Non-ST elevation MT (NSTEMI): Status: Acute (3) CKD (chronic kidney disease): Status: Acute (4) Arthritis: Status: Acute (5) Hypertension: Status: Acute Plan 86 year old male with past medical history of hypertension came in with chief complaint of substernal chest pain started this morning 10 out of 10 in severity , sharp , radiating to both arms, accompanied with shortness of breath, lasted about 30 minutes and then spontaneously resolved,he had similar likely chest pain about a week back, which he attributes to upper belly pain, he denied any palpitation dizziness nausea vomiting, fever cough. Assessment: NSTEMI Hypertension Tobacco use Plan: CTA chest abdomen and pelvis: EKG: Sinus rhythm, left axis deviation incomplete right bundle branch block, nonspecific T wave 2D echo: Normal left ventricular size. Mildly decreased left ?ventricular systolic function.? Left ventricular ejection ?fraction is estimated at 50-55 %.? Mild hypokinesis of apical ?anterior, apical lateral and apical septal olea.? Normal diastolic function.ormal right ventricular size and systolic function.Pulmonary pressure estimated at 23 mmHg. ?Mild mitral valve regurgitation. Troponin trend: [phone] Telemetry monitoring On ACS Protocol : Continue aspirin, Plavix , statin beta-nati, Nitropaste, sublingual nitro as needed, and therapeutic Ac with lovenox Hold olmesartan, continue amlodipine Protonix 40 p.o. daily Cardiac diet S/P Cardiac cath: S/p mid LCx PCI, [facility] on Board Gentle IV hydration with normal saline CODE STATUS: Full code DVT prophylaxis: On Lovenox Attestations Medical Necessity Statement*: Patient is to be in hospital for management of NSTEMI. Coding Level of Care Code Acute Visual Communications Instructor for Festus Padgett Diagnoses Chest pain R07.9 Non-ST elevation MT (NSTEMI) I21.4 CKD (chronic kidney disease) N18.9 Arthritis M19.90 Hypertension I10
[2022-05-23 19:00] LABS: Partial Thromboplastin Time 59.1 SECONDS (23.9-36.7)
--- NOTE | 2022-05-23 23:30 | PC.NURSE ---
Cardiac sheath pulled at approximately 1120. Pt tolerated well. No swelling, hematoma, or bleeding noted. Pt had no c/o pain or discomfort at the present time. Call light in reach. Sitter at bedside. Will continue to monitor.
[2022-05-24] MEDS: sodium chloride 0.9% 1,000 ML 100 ML IV (01:31)
[2022-05-24 04:00] VITALS: BP 134/67; PULSE 68; RESP 18; TEMP 36.7; O2SAT 98
[2022-05-24 05:57] LABS: Basophils % 0.5 %; Eosinophils # 0.1 10^3/uL (0.0-0.8); Eosinophils % 1.2 %; Hemoglobin 12.9 g/dL (11.7-16.6); Lymphocytes # 1.5 10^3/uL (0.8-4.8); Lymphocytes % 17.6 %; Mean Corpuscular HGB Conc 32.3 g/dL (30.0-36.0); Mean Corpuscular Hemoglobin 31.9 pg (28.0-34.0); Mean Platelet Volume 9.9 fL (7.4-10.4); Monocytes # 0.6 10^3/uL (0.2-0.9); Monocytes % 7.1 %; Neutrophils # 6.06 10^3/uL (1.8-7.7); Neutrophils % 73.4 %; Nucleated Red Blood Cells % 0 %; Platelet Count 216 10^3/cmm (130-400); Red Blood Count 4.04 10^6/uL (4.1-5.3); Red Cell Distribution Width 12.8 % (12.1-15.1); White Blood Count 8.3 10^3/uL (4.0-10.0)
[2022-05-24 06:00] VITALS: PULSE 68
[2022-05-24] MEDS: aspirin 81 mg EC Tablet PO (06:20)
[2022-05-24] MEDS: amlodipine 10 mg Tablet PO (06:20)
[2022-05-24] MEDS: metoprolol succinate ER (24 HR) 50 mg Tablet PO (06:20)
[2022-05-24 06:28] LABS: Alanine Aminotransferase 6 U/L (0-41); Albumin Level 3.2 g/dL (3.5-5.2); Alkaline Phosphatase 85 IU/L (40-130); Anion Gap 14.7 (5-19); Aspartate Amino Transferase 24 U/L (0-40); Blood Urea Nitrogen 13 mg/dL (8-23); Calcium 8.5 mg/dL (8.5-10.5); Carbon Dioxide 23 mmol/L (22-29); Chloride 104 mmol/L (98-107); Globulin 2.7 g/dL (1.3-4.6); Glucose 89 mg/dL (65-115); Osmolality Calculated 286 mOsm/kg (285-295); Potassium 3.7 mmol/L (3.5-5.1); Sodium 138 mmol/L (136-145); Total Protein 5.9 g/dL (6.6-8.7)
--- NOTE | 2022-05-24 07:59 | PM.PN ---
Subjective Subjective: Yesterday Henrique became combative during the procedure. I was able to get the LAD stented but I could not get the small AV groove circumflex branch angioplastied mainly because it was too small but also because of his combativeness. He ripped the TR band off prior to its time to come off last evening but fortunately does not have any vascular abnormalities. We were able to get the groin sheath out without a catastrophe. This morning he is got his clothes on, ready to go home sitting in the chair. He seems about the same mentally as when I met him. He says he is doing well. His left hip hurts and that is probably what made him so rambunctious during the cath procedure yesterday. Vitals/I&O/Wt Last Vital Signs Temp 98.1 F 05/24/22 04:00 Pulse 68 05/24/22 06:00 Resp 18 05/24/22 04:00 BP 134/67 05/24/22 04:00 Pulse Ox 98 05/24/22 04:00 O2 Del Method 05/23/22 11:37 05/23/22 05/24/22 05/24/22 22:59 06:59 14:59 Intake Total 1185 / 1185 1000 / 2185 Output Total 600 / 600 Balance 1185 / 1185 400 / 1585 Weight last 48 hrs Weight 180 lb Physical Exam Narrative: GENERAL: In general he seems comfortable sitting in the chair. He is lively and talkative and is in no distress. HEENT: Exam within normal limits. NECK: Supple without jugular vein distention. The carotid upstroke is normal without bruits. BACK: Exam normal. LUNGS: Clear. HEART: Regular rate and rhythm. ABDOMEN: Benign without organomegaly or tenderness. EXTREMITIES: No edema. The right radial area is flat, dry without bleeding, hematoma or vascular anomaly. The right groin is also flat and dry without hematoma. There is a slight amount of bruising suggesting some mild bleeding when the catheter came out. No pulsatile mass. Good pulse distally. NEUROLOGIC: Exam normal. SKIN: Unremarkable. Data : 05/24/22 05:17 05/24/22 05:17 A&P Assessment and plan (1) Non-ST elevation AR (NSTEMI): Status: Acute (2) CKD (chronic kidney disease): Status: Acute (3) Hypertension: Status: Acute Plan He may go home today. He should be discharged on low-dose aspirin, Plavix, beta-nati, statin, amlodipine and long-acting nitrate 30 mg daily. He should follow-up with the nurse practitioner in our office, Rosemary Cortes, in 7 to 10 days for both a right radial artery check and a right groin check. He will also need a chemistry panel at that time. The circumflex lesion that I was unable to intervene upon is a very small artery and hopefully we can treat this medically without recurrence of any angina. His creatinine is 1.2 this morning. Attestations Medical Necessity Statement*: Hopefully discharge today. Coding Level of Care Code Acute Hydrate Thickener Operator for Festus Padgett Diagnoses Non-ST elevation AR (NSTEMI) I21.4 CKD (chronic kidney disease) N18.9 Hypertension I10
[2022-05-24 08:00] VITALS: BP 124/67; PULSE 66; RESP 18; TEMP 36.4; O2SAT 98
[2022-05-24] MEDS: pantoprazole DR 40 mg Tablet PO (09:10)
[2022-05-24] MEDS: atorvastatin 40 mg Tablet PO (09:10)
[2022-05-24] MEDS: clopidogrel 75 mg Tablet PO (09:10)
[2022-05-24] MEDS: isosorbide mononitrate ER 30 mg Tablet PO (09:10)
--- NOTE | 2022-05-24 09:59 | PM.DCS ---
Discharge Providers Date of Admission: 05/22/22 17:38 Date of Discharge: May 24, 2022 Attending Provider at Admission: Dionicio Gomez MD Attending Provider at Discharge: Dionicio Gomez MD Primary Care Provider: MYA Sierra Diagnoses at Discharge Discharge Diagnosis (1) Non-ST elevation [place] (NSTEMI): Status: Acute (2) CKD (chronic kidney disease): Status: Acute (3) Hypertension: Status: Acute Reason for Visit Reason for Visit: CHEST PAIN Hospital Course Hospital Course Henrique Colon is a 86 year old male with past medical history of hypertension came in with chief complaint of substernal chest pain started this morning 10 out of 10 in severity , sharp , radiating to both arms, accompanied with shortness of breath, lasted about 30 minutes and then spontaneously resolved,he had similar likely chest pain about a week back, which he attributes to upper belly pain, he denied any palpitation dizziness nausea vomiting, fever cough.Currently patient is chest pain free. Significant past medical history of tobacco chewing He started chewing tobacco use at age 6, it was provided to him by his grandfather. Pertinent imaging study done in the ER: X-ray chest: CTA chest abdomen and pelvis:NO P/E TO A.D EKG: Sinus rhythm, left axis deviation incomplete right bundle branch block, nonspecific T wave abnormalities Pertinent labs: WBC 10.8, H&H 13/ 42 , PLT : 248 , serum sodium 140 serum potassium 3.8, BUN and serum creatinine: 20/1.5 , AST ALT alk phos normal, Troponin: 153 --[id number] Patient was admitted for the management of heart: NSTEMI: He was kept on ACS protocol: Aspirin statin Plavix, beta-nati, therapeutic anticoagulation, Imdur was later added. 2D echo showed: Normal left ventricular size. Mildly decreased left ?ventricular systolic function.? Left ventricular ejection ?fraction is estimated at 50-55 %.? Mild hypokinesis of apical ?anterior, apical lateral and apical septal olea.? Normal diastolic function.ormal right ventricular size and systolic function.Pulmonary pressure estimated at 23 mmHg. ?Mild mitral valve regurgitation. Patient underwent cardiac cath: S/p PCI to mid LAD, please see cardiology procedure note for details. Overall patient responded well to above medical management and was discharged in stable condition to home. Cardiology was on board. Patient will continue to follow cardiology as outpatient. Physical Exam Const: COMMON NORMALS: patient oriented x3 Resp: COMMON NORMALS: clear to auscultation bilaterally AUSCULTATION: clear to auscultation bilaterally Cardio: COMMON NORMALS: regular rate, regular rhythm, S1 normal heart sound present, S2 normal heart sound present, No gallops present (Cardio), No murmurs present (Cardio), No rub (Cardio) and Peripheral pulses 2+ throughout RATE: regular rate RHYTHM: regular rhythm HEART SOUNDS: S1 normal heart sound present and S2 normal heart sound present PERIPHERAL PULSES: Peripheral pulses 2+ throughout GI: COMMON NORMALS: Normal to inspection, nondistended, normoactive bowel sounds present, Soft to palpation, non-tender, No hepatosplenomegaly present and no masses AUSCULTATION: Yes normoactive bowel sounds PALPATION: Yes Soft to palpation and Yes No hepatosplenomegaly present RECTAL EXAM: Yes deferred Extremity: COMMON NORMALS: no clubbing, cyanosis or edema and no pedal edema Neuro: COMMON NORMALS: patient oriented x3 Discharge Data Studies Completed and Pending Completed Studies During Hospitalization Category Date Time Status CTA chest abdomen pelvis [CT angio chest abdomen pelvis Cat Scan 05/22/22 16:50 Completed ] Urgent RAND BUTTER request for service Routine Exams 05/23/22 09:46 Completed XR chest 1V portable [id number] Stat Exams 05/22/22 15:48 Completed CV. echo complete* [id number] Routine Ultrasound 05/22/22 21:55 Completed Pending at discharge Category Date Time Status Complete Blood Count w/Auto AM LABS Lab 05/25/22 04:00 Ordered Comprehensive Metabolic Panel AM LABS Lab 05/25/22 04:00 Ordered Radiology Impressions Chest X-Ray 05/22/22 15:48 IMPRESSION: No acute findings. Chest/Abdomen/Pelvis CTA 05/22/22 16:50 IMPRESSION: Negative for aortic dissection. No acute findings. COMMENTS: Consistent with the [employer]'s Incidental Findings Committee white paper (J Am Kenna Radiol 2018): Any incidental renal lesion less than 1 cm or classified as too small to characterize, or any incidental cystic renal lesion characterized as simple-appearing, is likely benign. No follow-up imaging is recommended for these lesions per consensus recommendations based on imaging criteria. Laboratory Results WBC 8.3 10^3/uL (4.0-10.0) 05/24/22 05:17 RBC 4.04 10^6/uL (4.1-5.3) L 05/24/22 05:17 Hgb 12.9 g/dL (11.7-16.6) 05/24/22 05:17 Hct 40.0 % (42.0-52.0) L 05/24/22 05:17 MCV 99.0 fl (80-94) H 05/24/22 05:17 MCH 31.9 pg (28.0-34.0) 05/24/22 05:17 MCHC 32.3 g/dL (30.0-36.0) 05/24/22 05:17 RDW 12.8 % (12.1-15.1) 05/24/22 05:17 Plt Count 216 10^3/cmm (130-400) 05/24/22 05:17 MPV 9.9 fL (7.4-10.4) 05/24/22 05:17 Neut % (Auto) 73.4 % 05/24/22 05:17 Lymph % (Auto) 17.6 % 05/24/22 05:17 Preston % (Auto) 7.1 % 05/24/22 05:17 Eos % (Auto) 1.2 % 05/24/22 05:17 Baso % (Auto) 0.5 % 05/24/22 05:17 Neut # (Auto) 6.06 10^3/uL (1.8-7.7) 05/24/22 05:17 Lymph # (Auto) 1.5 10^3/uL (0.8-4.8) 05/24/22 05:17 Preston # (Auto) 0.6 10^3/uL (0.2-0.9) 05/24/22 05:17 Eos # (Auto) 0.1 10^3/uL (0.0-0.8) 05/24/22 05:17 Baso # (Auto) 0.0 10^3/uL (0.0-0.1) 05/24/22 05:17 Nucleated RBC % (auto) 0 % 05/24/22 05:17 Nucleated RBCs # 0.0 /100WBC 05/24/22 05:17 PT 13.60 SECONDS (12.1-14.9) 05/23/22 01:45 INR 1.01 (0.8-1.2) 05/23/22 01:45 APTT 38.0 SECONDS (23.9-36.7) H 05/23/22 21:00 Sodium 138 mmol/L (136-145) 05/24/22 05:17 Potassium 3.7 mmol/L (3.5-5.1) 05/24/22 05:17 Chloride 104 mmol/L (98-107) 05/24/22 05:17 Carbon Dioxide 23 mmol/L (22-29) 05/24/22 05:17 Anion Gap 14.7 (5-19) 05/24/22 05:17 BUN 13 mg/dL (8-23) 05/24/22 05:17 Creatinine 1.2 mg/dL (0.7-1.2) 05/24/22 05:17 GFR Calculation Not Reportable 05/24/22 05:17 Glucose 89 mg/dL (65-115) 05/24/22 05:17 Estimat Average Glucose 105 05/23/22 01:45 Hemoglobin A1c 5.3 % (4.0-6.0) 05/23/22 01:45 Calculated Osmolality 286 mOsm/kg (285-295) 05/24/22 05:17 Lactate 2.2 mmol/L (0.5-2.2) 05/22/22 16:03 Calcium 8.5 mg/dL (8.5-10.5) 05/24/22 05:17 Magnesium 2.1 mg/dL (1.7-2.3) 05/23/22 01:45 Total Bilirubin 1.0 mg/dL (0.15-1.2) 05/24/22 05:17 AST 24 U/L (0-40) 05/24/22 05:17 ALT 6 U/L (0-41) 05/24/22 05:17 Alkaline Phosphatase 85 IU/L (40-130) 05/24/22 05:17 Troponin T Baseline 153 ng/L (0-15) H* 05/22/22 16:03 Troponin T 120 Minute 379.3 ng/L (0-15) H 05/22/22 18:39 Delta Troponin T 226.3 ABS# (0-10) H* 05/22/22 18:39 Troponin T Hi Sens 6Hr 493.4 ng/L (0-15) H 05/22/22 22:51 Troponin T Hi Sens 6Hr Delta 340.4 ng/L (0-12) H* 05/22/22 22:51 Total Protein 5.9 g/dL (6.6-8.7) L 05/24/22 05:17 Albumin 3.2 g/dL (3.5-5.2) L 05/24/22 05:17 Globulin 2.7 g/dL (1.3-4.6) 05/24/22 05:17 Triglycerides 60 mg/dL (0-150) 05/23/22 01:45 Triglycerides Cancelled 05/23/22 01:45 Cholesterol 145 mg/dL (0-200) 05/23/22 01:45 Cholesterol Cancelled 05/23/22 01:45 LDL Cholesterol, Calc 89 mg/dL (50-129) 05/23/22 01:45 LDL Cholesterol, Calc Cancelled 05/23/22 01:45 HDL Cholesterol 44 mg/dL (60-100) L 05/23/22 01:45 HDL Cholesterol Cancelled 05/23/22 01:45 LDL/HDL Ratio 2.02 RATIO (0.00-3.22) 05/23/22 01:45 LDL/HDL Ratio Cancelled 05/23/22 01:45 Cholesterol/HDL Ratio 3.30 mg/dL (1.0-5.00) 05/23/22 01:45 Cholesterol/HDL Ratio Cancelled 05/23/22 01:45 Lipase 36 U/L (13-60) 05/22/22 16:03 TSH 2.32 uIU/mL (0.27-4.20) 05/23/22 01:45 Urine Color Taylor (Yellow) 05/22/22 16:37 Urine Appearance Clear (CLEAR) 05/22/22 16:37 Urine pH 5 (5-7) 05/22/22 16:37 Ur Specific [place] 1.025 (1.005-1.030) 05/22/22 16:37 Urine Protein Neg (Negative) 05/22/22 16:37 Urine Glucose (UA) Norm (Normal) 05/22/22 16:37 Urine Ketones 1+ (Negative) H 05/22/22 16:37 Urine Blood Neg (Negative) 05/22/22 16:37 Urine Nitrate Negative (Negative) 05/22/22 16:37 Urine Bilirubin 1+ (Negative) H 05/22/22 16:37 Urine Urobilinogen 4 mg/dL (Negative) H 05/22/22 16:37 Ur Leukocyte Esterase Negative (Negative) 05/22/22 16:37 Vitals Last Vital Signs Temp 97.5 F L 05/24/22 08:00 Pulse 66 05/24/22 08:00 Resp 18 05/24/22 08:00 BP 124/67 05/24/22 08:00 Pulse Ox 98 05/24/22 08:00 O2 Del Method 05/24/22 08:00 Discharge Plan Discharge Patient Disposition: Home Condition: Stable Prescriptions: New atorvastatin 40 mg Tablet 40 mg PO DAILY 30 Days Qty: 30 3RF isosorbide mononitrate 30 mg Tablet Extended Release 24 Hr 30 mg PO DAILY 30 Days Qty: 30 3RF clopidogrel 75 mg Tablet 75 mg PO DAILY 30 Days Qty: 30 3RF nitroglycerin 0.4 mg Tablet, Sublingual 0.4 mg sublingual Q5M PRN (Reason: Chest Pain) 30 Days Qty: 30 0RF Continued imiquimod 5 % cream in packet See Rx Instructions .ROUTE .COMPLEX Rx Instructions: apply a pen head size of cream topically at bedtime for 5 nights then skip for 2 nights and then repeat Prevagen 1 cap PO QAM meloxicam 15 mg tablet 15 mg PO QAM Colcrys 0.6 mg tablet 0.6 mg PO DAILY PRN (Reason: GOUT FLARE UPS) olmesartan 40 mg tablet 40 mg PO QAM Changed metoprolol succinate 50 mg tablet extended release 24 hr 50 mg PO QAM 30 Days Qty: 30 3RF aspirin 81 mg tablet,delayed release (DR/EC) 81 mg PO QAM 30 Days Qty: 30 3RF amlodipine 10 mg tablet 10 mg PO QAM 30 Days Qty: 30 3RF Discharge Orders: Discharge Order (Routine); Ordered 05/24/22 Ordered By: Dionicio Gomez Other Ambulatory Orders: Basic Metabolic Panel (Routine) Timeframe: 1 Week Facility: [facility] - Location: Lab - Main Lab Ordered By: Dionicio Gomez Referrals: Raleigh Smith MD [Physician] - 07/02/22 11:00 am STACI Gregory FNP [Primary Care Provider] - 05/31/22 9:00 am (APPOINTMENT WITH ROSAS ROQUE) Rosemary Cortes FNP [Nurse Practitioner] - 05/31/22 12:45 pm Discharge Diet: Cardiac Discharge Activity: Resume usual activity Patient Instructions: Isosorbide Mononitrate (By mouth), Atorvastatin (By mouth) (Lipitor), Clopidogrel (By mouth), Coronary Angioplasty (DC), Abdominal Pain (ED), Chest Pain Stoplight, Opioid Safety, Post Angiogram Home Care Instructions Discharge Attestations Time Spent in Discharge Care*: less than 30 min Quality Metrics Clinical Quality Measures [ No reported AMI, CVA or VTE this stay] Coding Level of Care Code Acute Chg FW DC note Diagnoses Non-ST elevation [place] (NSTEMI) I21.4 CKD (chronic kidney disease) N18.9 Hypertension I10
[2022-05-24 10:48] VITALS: BP 124/67; PULSE 66; RESP 18; TEMP 36.4; O2SAT 98
--- NOTE | 2022-05-24 10:49 | PC.NURSE ---
1049 Discharge Note Patient discharged to Home via Private vehicle accompanied by spouse. Discharge instructions reviewed with patient and/or healthcare representative. Mobile pharmacy medications and/or prescriptions provided. Belongings/home medications returned.
== END 2022-05-24 10:49 | disposition home or self-care (01) | DRG 247 ==
LOC: ER 16:47 → MEDSURG 19:04
PROVIDERS: Internal Medicine Cardiovascular Disease; Admitting Provider Internal Medicine; Emergency Provider Emergency Medicine; PCP Nurse Practitioner Family; Visit Provider Internal Medicine
PROC: 027034Z Dilation of Coronary Artery, One Artery with Drug-eluting Intraluminal Device, Percutaneous Approach (ICD-10-PCS; principal; 2022-05-23 13:30)
PROC: 027034Z Dilation of Coronary Artery, One Artery with Drug-eluting Intraluminal Device, Percutaneous Approach (ICD-10-PCS; 2022-05-23 13:30)
DX: I21.4 Non-ST elevation (NSTEMI) myocardial infarction (principal); I12.9 Hypertensive chronic kidney disease with stage 1 through stage 4 chronic kidney disease, or unspecified chronic kidney disease; N18.9 Chronic kidney disease, unspecified; F17.220 Nicotine dependence, chewing tobacco, uncomplicated; M1A.9XX0 Chronic gout, unspecified, without tophus (tophi); Z79.82 Long term (current) use of aspirin; Z85.828 Personal history of other malignant neoplasm of skin
CPT/HCPCS: 36415; 71045; 71275; 74174; 80053; 80061; 81003; 83036; 83605; 83690; 83735; 84443; 84484; 85025; 85610; 85730; 92920; 93005; 93306; 93458; 96372; 99152; 99153; 99291; C1725; C1769; C1874; C1887; C1894; C9600; J1200; J1644; J1650; J2250; J3010; J3490; J7030; Q9967

== ENCOUNTER → 2022-05-30 10:32 | Outpatient (BNVA) | payer MEDICARE, SELFPAY | PROVIDERS: PCP Nurse Practitioner Family; Visit Provider Nurse Practitioner Family | DX: Z79.899 Other long term (current) drug therapy (principal); N18.9 Chronic kidney disease, unspecified; Z09 Encounter for follow-up examination after completed treatment for conditions other than malignant neoplasm; R41.3 Other amnesia; C44.91 Basal cell carcinoma of skin, unspecified; M19.049 Primary osteoarthritis, unspecified hand | CPT/HCPCS: 80048; 85025 ==

== ENCOUNTER → 2022-05-31 12:22 | Outpatient (BNVA) | payer MEDICARE, SELFPAY | PROVIDERS: PCP Nurse Practitioner Family; Visit Provider Nurse Practitioner Family | DX: I25.10 Atherosclerotic heart disease of native coronary artery without angina pectoris (principal); I12.9 Hypertensive chronic kidney disease with stage 1 through stage 4 chronic kidney disease, or unspecified chronic kidney disease; N18.9 Chronic kidney disease, unspecified; Z87.891 Personal history of nicotine dependence | CPT/HCPCS: 99214 ==

== ENCOUNTER → 2022-06-18 10:22 | Outpatient (BNVA) | payer MEDICARE, SELFPAY | PROVIDERS: PCP Nurse Practitioner Family; Visit Provider Internal Medicine Cardiovascular Disease | DX: N18.9 Chronic kidney disease, unspecified (principal) | CPT/HCPCS: 80048 ==

== ENCOUNTER → 2022-07-02 11:18 | Outpatient (BNVA) | payer MEDICARE, SELFPAY | PROVIDERS: PCP Nurse Practitioner Family; Visit Provider Internal Medicine Cardiovascular Disease | DX: I25.10 Atherosclerotic heart disease of native coronary artery without angina pectoris (principal); I12.9 Hypertensive chronic kidney disease with stage 1 through stage 4 chronic kidney disease, or unspecified chronic kidney disease; N18.9 Chronic kidney disease, unspecified; Z87.891 Personal history of nicotine dependence | CPT/HCPCS: 99213; 99214 ==

== ENCOUNTER → 2022-12-04 14:42 | Outpatient (BNVA) | payer MEDICARE, SELFPAY | PROVIDERS: PCP Nurse Practitioner Family; Visit Provider Internal Medicine | DX: I12.9 Hypertensive chronic kidney disease with stage 1 through stage 4 chronic kidney disease, or unspecified chronic kidney disease (principal); I25.10 Atherosclerotic heart disease of native coronary artery without angina pectoris; Z87.891 Personal history of nicotine dependence | CPT/HCPCS: 99214 ==

== ENCOUNTER → 2023-06-05 11:13 | Outpatient (BNVA) | payer MEDICARE, SELFPAY | PROVIDERS: PCP Nurse Practitioner Family; Visit Provider Internal Medicine Cardiovascular Disease | DX: I25.10 Atherosclerotic heart disease of native coronary artery without angina pectoris (principal); I12.9 Hypertensive chronic kidney disease with stage 1 through stage 4 chronic kidney disease, or unspecified chronic kidney disease; N18.9 Chronic kidney disease, unspecified; Z95.5 Presence of coronary angioplasty implant and graft; I25.2 Old myocardial infarction; Z87.891 Personal history of nicotine dependence | CPT/HCPCS: 99213 ==